=== PATIENT | female | born 1945 | race Caucasian/White ===

== ENCOUNTER → 2017-04-28 | Outpatient (CLI) | payer MEDICARE, OTHER ==
[~2017-04-28] MED LIST: DEXA4 PO; ESCI5 PO; Emla Cream30 GM TP; IBUP400 PO; OMEP20ER PO; ONDA8 PO; OXYC5 PO; SIMV10 PO; ZOLP5 PO
== END ==
LOC: LAB SHORT 07:41 → LAB 07:41
DX: D48.5 Neoplasm of uncertain behavior of skin (principal)
CPT/HCPCS: 88305

== ENCOUNTER → 2018-11-30 | Outpatient (CLI) | payer MEDICARE, OTHER ==
[2018-11-30 11:07] LABS: Source, Urine Clean Catch
[2018-11-30 12:20] LABS: Bilirubin, Urine Neg (Neg); Blood, Urine Neg (Neg); Glucose Qualitative, Urine Neg (Neg); Ketones, Urine Neg (Neg); Leukocyte Esterase, Urine Neg (Neg); Nitrite, Urine Neg (Neg); Protein, Urine 3+ (Neg); Specific Gravity, Urine 1.015 (1.003-1.022); Urobilinogen, Urine NORM (Normal)
[2018-11-30 13:53] LABS: Appearance, Urine Clear (Clear); Color, Urine Yellow (P-Yellow)
[2018-11-30 13:54] LABS: Bacteria Mod /hpf; Mucus Light ({null, 0-Heavy}); Red Blood Cells, Urine Not Seen /hpf (0-2); Squamous Epithelial Cells Rare /hpf (Few); White Blood Cells, Urine 0-2 /hpf (0-5)
== END | disposition home or self-care (01) ==
LOC: LAB 10:45 → LAB SHORT 10:45 → LAB FUT 12-01 09:30
PROVIDERS: Registered Nurse Oncology
DX: R30.0 Dysuria (principal)
CPT/HCPCS: 81001

== ENCOUNTER 2019-02-10 14:58 | Day surgery (SDC) | payer MEDICARE, OTHER | END 2019-02-10 23:50 | disposition home or self-care (01) | LOC: US 14:58 | DX: R18.8 Other ascites (principal); C56.9 Malignant neoplasm of unspecified ovary; C54.8 Malignant neoplasm of overlapping sites of corpus uteri; C77.2 Secondary and unspecified malignant neoplasm of intra-abdominal lymph nodes; C77.1 Secondary and unspecified malignant neoplasm of intrathoracic lymph nodes; C78.00 Secondary malignant neoplasm of unspecified lung | CPT/HCPCS: 76705 ==

== ENCOUNTER 2019-05-12 09:16 | Day surgery (SDC) | payer MEDICARE, OTHER ==
[2019-05-12] MEDS ORDERED: ATOR20 PO (10:01)
[2019-05-12] MEDS ORDERED: OLME20 PO (11:43)
[2019-05-12] MEDS ORDERED: AMLO5 PO (11:44)
[2019-05-12] MEDS ORDERED: FISH OIL 1,0001 EACH PO (11:44)
[2019-05-12] MEDS ORDERED: Vitamin D2000 UNIT PO (11:44)
[2019-05-12] MEDS ORDERED: HYDHCL25 PO (11:45)
[2019-05-12] MEDS ORDERED: ACET500 PO (11:46)
[2019-05-12] MEDS ORDERED: AMLO10 PO (11:47)
[2019-05-12] MEDS ORDERED: VALS80 PO (11:47)
[2019-05-12] MEDS ORDERED: VALA500 PO (11:47)
== END 2019-05-12 11:48 | disposition home or self-care (01) ==
LOC: ATC 09:16
DX: E83.41 Hypermagnesemia (principal); I12.9 Hypertensive chronic kidney disease with stage 1 through stage 4 chronic kidney disease, or unspecified chronic kidney disease; D63.1 Anemia in chronic kidney disease; N18.3 Chronic kidney disease, stage 3 (moderate); E78.00 Pure hypercholesterolemia, unspecified; N20.0 Calculus of kidney; C56.9 Malignant neoplasm of unspecified ovary; C54.8 Malignant neoplasm of overlapping sites of corpus uteri; C77.2 Secondary and unspecified malignant neoplasm of intra-abdominal lymph nodes; C77.1 Secondary and unspecified malignant neoplasm of intrathoracic lymph nodes; C78.00 Secondary malignant neoplasm of unspecified lung; Z88.8 Allergy status to other drugs, medicaments and biological substances; Z79.899 Other long term (current) drug therapy; D73.9 Disease of spleen, unspecified; E87.6 Hypokalemia; R73.09 Other abnormal glucose
CPT/HCPCS: 96365; 96366; J3475

== ENCOUNTER → 2020-04-04 | Outpatient (CLI) | payer MEDICARE, OTHER ==
[~2020-04-04] MED LIST changes: +ACET500 PO; +AMLO10 PO; +AMLO5 PO; +ATOR20 PO; +FISH OIL 1,0001 EACH PO; +HYDHCL25 PO; +OLME20 PO; +VALA500 PO; +VALS80 PO; +Vitamin D2000 UNIT PO
[2020-04-04 12:41] LABS: BASOPHILS ABSOLUTE AUTO 0.03 K/mm3 (0.00-0.23); BASOPHILS PERCENT AUTO 1 % (0-2); EOSINOPHILS ABSOLUTE AUTO 0.18 K/mm3 (0.00-0.68); EOSINOPHILS PERCENT AUTO 6 % (0-6); Hemoglobin 11.1 g/dL (11.5-16.0); IMMATURE GRAN ABSOLUTE AUTO 0.01 K/mm3 (0.00-0.10); IMMATURE GRAN PERCENT AUTO 0 % (0-1); LYMPHOCYTES ABSOLUTE AUTO 1.36 K/mm3 (0.84-5.20); LYMPHOCYTES PERCENT AUTO 43 % (21-46); MONOCYTES ABSOLUTE AUTO 0.25 K/mm3 (0.16-1.47); MONOCYTES PERCENT AUTO 8 % (4-13); Mean Corpuscular HGB 32.3 pg (26.0-34.0); Mean Corpuscular HGB Conc 32.6 g/dL (31.5-36.5); Mean Corpuscular Volume 99 fL (80-100); Mean Platelet Volume 10.6 fL (9.1-12.4); NEUTROPHILS ABSOLUTE AUTO 1.37 K/mm3 (1.96-9.15); NEUTROPHILS PERCENT AUTO 43 % (41-73); Platelet Count 206 K/mm3 (150-400); RDW Coefficient Variation 14.9 % (11.7-14.2); RDW Standard Deviation 53.1 fL (35.1-46.3); Red Blood Cell Count 3.44 M/mm3 (3.80-5.20)
[2020-04-04 12:56] LABS: Albumin, Blood 3.3 g/dL (3.4-5.0); Albumin/Globulin Ratio 0.9 (0.8-1.8); Bilirubin, Total 0.4 mg/dL (0.1-1.0); Bun/Creatinine Ratio 33.5 (12.0-20.0); Creatinine, Blood 1.73 mg/dL (0.40-1.00); Globulin, Blood 3.6 g/dL (2.2-4.0); Potassium, Blood 3.3 mmol/L (3.5-5.5); Total Protein, Blood 6.9 g/dL (6.4-8.2)
== END ==
LOC: LAB 12:16 → LAB SHORT 12:16
PROVIDERS: Registered Nurse Oncology
DX: C56.9 Malignant neoplasm of unspecified ovary (principal)
CPT/HCPCS: 80053; 85025; 86304

== ENCOUNTER 2020-08-15 14:19 | Day surgery (SDC) | payer MEDICARE, OTHER | END 2020-08-15 22:52 | disposition home or self-care (01) | LOC: RAD 14:19 | DX: C56.9 Malignant neoplasm of unspecified ovary (principal) | CPT/HCPCS: 36598 ==

== ENCOUNTER → 2021-03-06 | Outpatient (CLI) | payer MEDICARE, OTHER ==
[2021-03-06 12:53] LABS: Albumin, Blood 2.7 g/dL (3.4-5.0); Albumin/Globulin Ratio 0.8 (0.8-1.8); Bilirubin, Total 0.5 mg/dL (0.1-1.0); Bun/Creatinine Ratio 22.7 (12.0-20.0); Calcium, Blood 8.4 mg/dL (8.5-10.1); Creatinine, Blood 1.19 mg/dL (0.40-1.00); Globulin, Blood 3.4 g/dL (2.2-4.0); Phosphorus, Blood 3.2 mg/dL (2.5-4.9); Potassium, Blood 3.6 mmol/L (3.5-5.5); Total Protein, Blood 6.1 g/dL (6.4-8.2)
== END | disposition home or self-care (01) ==
LOC: LAB SHORT 11:27 → LAB 11:27
PROVIDERS: Internal Medicine Hematology & Oncology
DX: C56.9 Malignant neoplasm of unspecified ovary (principal)
CPT/HCPCS: 80053; 84100; 86304

== ENCOUNTER → 2021-04-01 | Outpatient (CLI) | payer MEDICARE, OTHER ==
[2021-04-01 11:22] LABS: BASOPHILS ABSOLUTE AUTO 0.02 K/mm3 (0.00-0.23); BASOPHILS PERCENT AUTO 0 % (0-2); EOSINOPHILS ABSOLUTE AUTO 0.01 K/mm3 (0.00-0.68); EOSINOPHILS PERCENT AUTO 0 % (0-6); Hematocrit 38.5 % (33.0-51.0); Hemoglobin 12.7 g/dL (11.5-16.0); IMMATURE GRAN ABSOLUTE AUTO 0.11 K/mm3 (0.00-0.10); IMMATURE GRAN PERCENT AUTO 1 % (0-1); LYMPHOCYTES ABSOLUTE AUTO 1.68 K/mm3 (0.84-5.20); LYMPHOCYTES PERCENT AUTO 14 % (21-46); MONOCYTES ABSOLUTE AUTO 0.55 K/mm3 (0.16-1.47); MONOCYTES PERCENT AUTO 4 % (4-13); Mean Corpuscular HGB 33.2 pg (26.0-34.0); Mean Corpuscular Volume 101 fL (80-100); Mean Platelet Volume 9.4 fL (9.1-12.4); NEUTROPHILS ABSOLUTE AUTO 10.01 K/mm3 (1.96-9.15); NEUTROPHILS PERCENT AUTO 81 % (41-73); Platelet Count 144 K/mm3 (150-400); RDW Coefficient Variation 16.8 % (11.7-14.2); RDW Standard Deviation 62.1 fL (35.1-46.3); Red Blood Cell Count 3.83 M/mm3 (3.80-5.20); White Blood Cell Count 12.38 K/mm3 (4.00-11.30)
== END | disposition home or self-care (01) ==
LOC: LAB SHORT 11:15
PROVIDERS: Internal Medicine Hematology & Oncology
DX: C56.9 Malignant neoplasm of unspecified ovary (principal)
CPT/HCPCS: 85025; 86304

== ENCOUNTER → 2021-04-22 | Outpatient (CLI) | payer MEDICARE, OTHER ==
[2021-04-22 16:16] LABS: Magnesium, Blood 1.3 mg/dL (1.6-2.4)
[2021-04-22 16:17] LABS: Albumin/Globulin Ratio 1.1 (0.8-1.8); Bilirubin, Total 0.4 mg/dL (0.1-1.0); Bun/Creatinine Ratio 17.8 (12.0-20.0); Calcium, Blood 8.2 mg/dL (8.5-10.1); Creatinine, Blood 1.52 mg/dL (0.40-1.00); Globulin, Blood 2.8 g/dL (2.2-4.0); Phosphorus, Blood 3.9 mg/dL (2.5-4.9); Potassium, Blood 3.7 mmol/L (3.5-5.5); Total Protein, Blood 5.8 g/dL (6.4-8.2)
== END ==
LOC: LAB SHORT 14:57
PROVIDERS: Internal Medicine Hematology & Oncology
DX: C56.9 Malignant neoplasm of unspecified ovary (principal)
CPT/HCPCS: 80053; 83735; 84100; 86304

== ENCOUNTER → 2021-05-12 | Outpatient (CLI) | payer MEDICARE, OTHER ==
[2021-05-12 13:59] LABS: Albumin, Blood 2.6 g/dL (3.4-5.0); Albumin/Globulin Ratio 0.8 (0.8-1.8); Bilirubin, Total 0.5 mg/dL (0.1-1.0); Calcium, Blood 8.9 mg/dL (8.5-10.1); Creatinine, Blood 1.46 mg/dL (0.40-1.00); Globulin, Blood 3.1 g/dL (2.2-4.0); Phosphorus, Blood 3.8 mg/dL (2.5-4.9); Potassium, Blood 3.4 mmol/L (3.5-5.5); Total Protein, Blood 5.7 g/dL (6.4-8.2)
== END | disposition home or self-care (01) ==
LOC: LAB SHORT 12:16 → LAB 12:16
PROVIDERS: Internal Medicine Hematology & Oncology
DX: C56.9 Malignant neoplasm of unspecified ovary (principal)
CPT/HCPCS: 80053; 83735; 84100

== ENCOUNTER 2021-06-04 15:03 | Inpatient (IN) | payer MEDICARE, OTHER ==
[~2021-06-04] VITALS: Ht 121.9 cm; Wt 64.0 kg
[~2021-06-04 15:03] MED LIST changes: -BENZ100A PO; -BUME2 PO; -CODEINE PO; -GUAIFENESIN PO; -LOSARTAN POTASS25 M2 PO; -MONT10T PO; -POTA10T PO; -Phenergan PO; -SYNTHROID50 MC1 PO; -Ventolin/Prove6.7 GM INH
[2021-06-04 15:51] LABS: BASOPHILS ABSOLUTE AUTO 0.07 K/mm3 (0.00-0.23); BASOPHILS PERCENT AUTO 0 % (0-2); EOSINOPHILS PERCENT AUTO 0 % (0-6); Hematocrit 36.4 % (33.0-51.0); IMMATURE GRAN ABSOLUTE AUTO 0.07 K/mm3 (0.00-0.10); IMMATURE GRAN PERCENT AUTO 0 % (0-1); LYMPHOCYTES ABSOLUTE AUTO 0.86 K/mm3 (0.84-5.20); LYMPHOCYTES PERCENT AUTO 6 % (21-46); MONOCYTES ABSOLUTE AUTO 1.08 K/mm3 (0.16-1.47); MONOCYTES PERCENT AUTO 7 % (4-13); Mean Corpuscular HGB 33.7 pg (26.0-34.0); Mean Corpuscular Volume 102 fL (80-100); Mean Platelet Volume 9.9 fL (9.1-12.4); NEUTROPHILS PERCENT AUTO 87 % (41-73); Platelet Count 241 K/mm3 (150-400); RDW Coefficient Variation 15.3 % (11.7-14.2); RDW Standard Deviation 57.4 fL (35.1-46.3); Red Blood Cell Count 3.56 M/mm3 (3.80-5.20); White Blood Cell Count 15.58 K/mm3 (4.00-11.30)
[2021-06-04 16:02] LABS: Magnesium, Blood 1.5 mg/dL (1.6-2.4)
[2021-06-04 16:03] LABS: Bun/Creatinine Ratio 14.8 (12.0-20.0); Creatinine, Blood 1.42 mg/dL (0.40-1.00); Potassium, Blood 3.8 mmol/L (3.5-5.5)
[2021-06-04 16:52] LABS: Influenza A, PCR NEGATIVE (NEGATIVE); Influenza B, PCR NEGATIVE (NEGATIVE); Resp Syncytial Virus, PCR NEGATIVE (NEGATIVE); SARS-Cov-2 (COVID-19) PCR, MMC NEGATIVE (NEGATIVE)
--- NOTE | 2021-06-04 17:11 | NUR ---
ED Palliative Care Consult Received call from Isamar at [facility]. Dr Reagan has referred Pt to [facility]. Pt has metastatic cancer with treatment no longer beneficial. Spoke with Dr Garcia, discussed case, and relayed information learned. Dr Mathias reports Pt may benefit from hospital admission for treatment until family has chance to process information. Pt resting on gurney upon arrival. Pt's daughter Kylah at bedside. Pt is A&OX2/3. Pt does appear confused at times. Kylah reports Pt struggles recognizing her. Pt denies pain at this time. Pt appears mildly dyspneic. Spoke with Kylah outside of Pt's room. Engaged in therapeutic conversation regaerding hospice as an option. Educated on hospice philosophy with V/U made by Kylah. Kylah intermittently tearful and emotional support offered. Kylah is in agreement with Pt being admitted if recomended. Plan for Kylah and family to discuss hospice further. Kylah reports thinking hospice is something Pt would want. She reports Pt has been researching lately and feels she is probably ready. No other concerns reported at this time. Palliative Care will F/U with Pt and family if admitted to the floor.
[2021-06-04 17:13] LABS: Source, Urine Straight Cath
[2021-06-04 17:15] LABS: Bilirubin, Urine Neg (Neg); Blood, Urine 1+ (Neg); Glucose Qualitative, Urine Neg (Neg); Ketones, Urine 2+ (Neg); Leukocyte Esterase, Urine Neg (Neg); Nitrite, Urine Neg (Neg); Protein, Urine 4+ (Neg); Specific Gravity, Urine 1.025 (1.003-1.022); Urobilinogen, Urine NORM (Normal)
[2021-06-04 17:30] LABS: Appearance, Urine Hazy (Clear); Color, Urine Pale Yellow (P-Yellow)
[2021-06-04 17:31] LABS: Bacteria Rare /hpf; Squamous Epithelial Cells Rare /hpf (Few); White Blood Cells, Urine 0-2 /hpf (0-5)
[2021-06-04 17:32] LABS: Hyaline Casts 0-2 /lpf (0-2); Mucus Light (0-Heavy); Trichomonas Rare /hpf
[2021-06-04] MEDS ORDERED: LOSARTAN POTASS25 M2 PO (19:00)
[2021-06-04] MEDS ORDERED: SYNTHROID50 MC1 PO (19:02)
[2021-06-04] MEDS ORDERED: MONT10T PO (19:03)
[2021-06-04] MEDS ORDERED: Ventolin/Prove6.7 GM INH (19:03)
[2021-06-04] MEDS ORDERED: BENZ100A PO (20:34)
[2021-06-04] MEDS ORDERED: Phenergan PO (20:36)
[2021-06-04] MEDS ORDERED: BUME2 PO (20:38)
[2021-06-04] MEDS ORDERED: POTA10T PO (20:38)
[2021-06-04] MEDS ORDERED: GUAIFENESIN PO (23:06)
[2021-06-04] MEDS ORDERED: CODEINE PO (23:06)
--- NOTE | 2021-06-05 01:56 | NUR ---
AT 2106 PATIENT ADMITTED FROM ER TO PCU ROOM 5 ACCOMPANIED BY RN. PATIENT WAS ASSESSED AND ALERT ORIENTED TIME 3. ABLE TO MAKE NEEDS KNOWN. PATIENT ABLE TO AMBULATE WITH STANDBY ASSIST TO BATHROOM. PATIENT NOTED WITH CONTINUOUS COUGH. LUNGS SOUNDS NOTED WITH COARSE/DIMINISHED.PATIENT CURRENTLY HAS 2 LITERS OF OXYGEN IN PLACED.LAST BM 06/03/21. CONTINUE TO MONITOR PATIENT CONDITION.
--- NOTE | 2021-06-05 02:23 | NUR ---
2320 IV FLUIDS WAS ORDERED TO BE ADMINISTERED TO PATIENT.PATIENT STATED WHY ARE TO GIVEN ME THAT AND WHO IS GOING TO PAY FOR THE MEDS. PATIENT WAS REASSESSED AND NOTED CONFUSED ASKING WHERE IM I. CALLED WAS PLACED TO IN HOUSE DOCTOR FOR NEW ORDERS VENOUS BLOOD GAS AND MELATONIN 5MG, LABETALOL GIVEN PATIENT B/P ELEVATED. CALLED PLACED OUT TO SON MICHELET, MICHELET WAS INFORMED OF HIS MOTHERS CONDITION AND NEW ONSET OF CONFUSION AND REFUSING TO TAKE MEDICATION. SON STATED HIS MOTHER CONFUSION STARTED YESTERDAY. MICHELET WAS REQUESTED TO COME AND STAY WITH MOTHER PER CHARGE NURSE. CONTINUE TO MONIOR PATIENT CONDITION.
[2021-06-05 04:39] LABS: BASOPHILS ABSOLUTE AUTO 0.05 K/mm3 (0.00-0.23); BASOPHILS PERCENT AUTO 1 % (0-2); EOSINOPHILS PERCENT AUTO 0 % (0-6); Hematocrit 32.7 % (33.0-51.0); Hemoglobin 10.2 g/dL (11.5-16.0); IMMATURE GRAN ABSOLUTE AUTO 0.06 K/mm3 (0.00-0.10); IMMATURE GRAN PERCENT AUTO 1 % (0-1); LYMPHOCYTES ABSOLUTE AUTO 0.28 K/mm3 (0.84-5.20); LYMPHOCYTES PERCENT AUTO 3 % (21-46); MONOCYTES PERCENT AUTO 4 % (4-13); Mean Corpuscular HGB 32.7 pg (26.0-34.0); Mean Corpuscular HGB Conc 31.2 g/dL (31.5-36.5); Mean Corpuscular Volume 105 fL (80-100); Mean Platelet Volume 9.7 fL (9.1-12.4); NEUTROPHILS ABSOLUTE AUTO 8.63 K/mm3 (1.96-9.15); NEUTROPHILS PERCENT AUTO 92 % (41-73); Platelet Count 185 K/mm3 (150-400); RDW Coefficient Variation 15.3 % (11.7-14.2); RDW Standard Deviation 58.3 fL (35.1-46.3); Red Blood Cell Count 3.12 M/mm3 (3.80-5.20); White Blood Cell Count 9.42 K/mm3 (4.00-11.30)
[2021-06-05 05:13] LABS: Bun/Creatinine Ratio 16.2 (12.0-20.0); Calcium, Blood 8.3 mg/dL (8.5-10.1); Creatinine, Blood 1.36 mg/dL (0.40-1.00); Potassium, Blood 3.6 mmol/L (3.5-5.5)
[2021-06-05 05:32] LABS: Base Excess Venous -6.1 mmol/L; Bicarbonate Venous 18.9 mmol/L (24.0-30.0); PCO2 Venous 40.6 mmHg (38-42); PO2 Venous 27.8 mmHg (38-42); pH Blood Venous 7.31 (7.34-7.37)
--- NOTE | 2021-06-05 09:47 | NUR ---
OT in working with Pt. Spoke with son Hiram and daughter Kylah outside of Pt's room. Answered question and offered supportive listening. Hiram reports undecided on hospice agency to choose from. Continued supportive listening. Spoke with Primary RN Tressa and discussed case. Palliative Care will remain available.
--- NOTE | 2021-06-05 17:08 | NUR ---
SHIFT SUMMARY PT A&O X3 W/ NOTED FORGETFULNESS, ABLE TO FOLLOW INSTRUCTIONS & AMBULATE TO BATHROOM W/ MINIMAL 1 PERSON ASSIST W/ FWW. PT VSS. SPO2 > 92% ON 2L NC. PT W/ OCCASSIONAL DRY, HARSH COUGH. PRN PO COUGH MEDICATION PROVIDED PER EMAR X1 THIS SHIFT. MONITOR SHOWING SR-ST, HR 80's-105. PT BP ELEVATED, PRN IV LABETALOL GIVEN PER EMAR X1 THIS SHIFT W/ IMPROVEMENT. AT APPROX 1600, PT ONLY ORIENTED TO SELF & FAMILY IN RM. PT DIFFICULTY FOLLOWING SIMPLE INSTRUCTIONS. PT W/ INCONTINENT BM W/ PT UNAWARE. PT W/ DIFFICULTY FOLLOWING SIMPLE INSTRUCTIONS. PT ABLE TO FOLLOW SINGLE ISOLATED INSTRUCTION FOR 1-2 SECONDS, BEFORE THEN BECOMING DISTRACTED W/ ATTEMPTS TO DO COUNTERPRODUCTIVE ACTIONS, REQUIRING CONTINUOUS DIRECTION/REDIRECTION FOR BASIC TASKS/CARE. PT SON REPORTING PT INCREASINGLY CONFUSED AT NIGHT FOR THE PAST COUPLE OF MONTHS. PT SON REPORTING "IT'S BEEN HARD BECAUSE SHE'S FINE DURING THE DAY, AND THAT'S WHEN THE DOCTORS SEE HER, BUT AT NIGHT SHE'S LIKE THIS." PT SON STATING PT ATTEMPTING TO DRINK FROM FLYER REPAIRER CORD. PT REDIRECTED TO WATER CUP. PT SITTING UP IN CHAIR W/ TAB ALARM ON. BED ALARM USE WHEN IN BED. PT SON REPORTING PT DAUGHTER AVAILABLE TO SPEND NIGHT W/ PT TONIGHT TO ASSIST W/ PT CONFUSION/CARE.
[2021-06-05 19:27] LABS: Vancomycin, Random 10.1 ug/mL
--- NOTE | 2021-06-05 23:51 | NUR ---
PT IS ALERT, ORIENTED TO SELF ONLY. APPEARS ANXIOUS, STARTLES WITH ASSESSMENTS AND INTERVENTIONS EVEN WHEN EXPLANATION GIVEN. PT ABLE TO IDENTIFY FAMILY MEMBERS VISTING. PT NEEDS CONSTANT REMINDING NOT TO REMOVE O2. PT INCONTINENET, DOMINICK CARE PERFORMED. PT TAKES PILLS WHOLE IN APPLESAUCE WITH MODERATE DIFFICULTY. BP ELEVATED, PRN LABATALOL GIVEN, SBP < 160, WILL CONTINUE TO MONITOR. SISTER ATTENTIVE AT BEDSIDE. SAFETY MEASURES IN PLACE.
[2021-06-06 06:23] LABS: Hematocrit 30.5 % (33.0-51.0); Hemoglobin 9.9 g/dL (11.5-16.0); Mean Corpuscular HGB 33.2 pg (26.0-34.0); Mean Corpuscular HGB Conc 32.5 g/dL (31.5-36.5); Mean Corpuscular Volume 102 fL (80-100); Mean Platelet Volume 10.1 fL (9.1-12.4); Platelet Count 142 K/mm3 (150-400); RDW Coefficient Variation 15.2 % (11.7-14.2); Red Blood Cell Count 2.98 M/mm3 (3.80-5.20); White Blood Cell Count 26.44 K/mm3 (4.00-11.30)
[2021-06-06 06:44] LABS: Albumin, Blood 2.2 g/dL (3.4-5.0); Anion Gap 11 mmol/L (6-16); Blood Urea Nitrogen 23 mg/dL (8-24); Bun/Creatinine Ratio 16.1 (12.0-20.0); CO2, Blood 18 mmol/L (21-32); Calcium, Blood 8.5 mg/dL (8.5-10.1); Chloride, Blood 112 mmol/L (98-108); Creatinine, Blood 1.43 mg/dL (0.40-1.00); Glomerular Filtration Rate 36 (60-); Glucose, Blood 101 mg/dL (70-99); Phosphorus, Blood 3.6 mg/dL (2.5-4.9); Potassium, Blood 3.3 mmol/L (3.5-5.5); Sodium, Blood 141 mmol/L (136-145)
[2021-06-06 06:51] LABS: BAND PERCENT MAN 13 % (0-8); BASOPHILS ABSOLUTE MAN 0.26 K/mm3 (0.00-0.23); BASOPHILS PERCENT MAN 1 % (0-2); EOSINOPHILS PERCENT MAN 0 % (0-6); LYMPHOCYTES ABSOLUTE MAN 0.52 K/mm3 (0.84-5.20); LYMPHOCYTES PERCENT MAN 2 % (21-46); MONOCYTES PERCENT MAN 0 % (4-13); NEUTROPHILS ABSOLUTE MAN 25.64 K/mm3 (1.96-9.15); SEG NEUTROPHILS PERCENT MAN 84 % (41-73); TOTAL CELLS COUNTED 100
--- NOTE | 2021-06-06 09:12 | NUR ---
Pt resting in bed. Family at bedside and Primary RN recording vitals. Pt denies pain and dyspnea at this time. Pt is pleasantly confused. Non productive slightly wet cough noted. Pt and family report no concerns at this time. Palliative Care will remain available.
--- NOTE | 2021-06-06 19:26 | NUR ---
SHIFT SUMMARY / TRANSITION TO COMFORT CARE PT ALERT, ORIENTED TO SELF & FAMILY ONLY. PT W/ DIFFICULTY FOLLOWING SIMPLE COMMANDS & UNABLE TO FOCUS ATTENTION. PT RESTLESS & FIDGETY MAJORITY OF DAY. PT BECOMING MORE & MORE DIFFICULT TO DIRECT. FAMILY AT BEDSIDE T/O SHIFT. MULTIPLE DISCUSSIONS W/ PT SON & DAUGHTER TODAY W/ PT SON & DAUGHTER REQUESTING COMFORT CARE AFTER DISCUSSIONS W/ PALLIATIVE CARE WELL. MD AGUIRRE W/ ORDER FOR COMFORT CARE. PT W/ INCREASING AGITATION & RESTLESSNESS, SITTING UP & DOWN IN BED, GRABBING & PULLING AT ANYTHING IN REACH. ATTEMPTS W/ PRN PO ROXANOL & PRN IV ATIVAN GIVEN PER EMAR W/ NO IMPROVEMENTS. PRN IV HALDOL GIVEN W/ NO IMPROVEMENT. PRN IV DILAUDID THEN GIVEN W/ PT NO LONGER AGITATED & RESTLESS, BUT BUE & BLE TENSE. PT JAW CLENCHED. PRN IV MORPHINE GIVEN W/ SIGNIFICANTLY LESS BODY TENSION NOTED. REPORT GIVEN TO ELIGIBILITY EXAMINER RN. FAMILY REMAINS AT PT BEDSIDE ASSISTING W/ PT COMFORT/CARE.
--- NOTE | 2021-06-06 23:18 | NUR ---
PT ON COMFORT CARE ORDERS. FAMILY AT BEDSIDE, DAUGHTER SLEEPING IN ARMCHAIR. PT SLEEPING, OCCASIONALLY MOANING AND MOVING IN BED. MORPHINE IV GIVEN FOR COMFORT. PT NOW RESTING COMFORTABLY WITH EYES CLOSED. DAUGHTER STATES SATISFACTION WITH PT COMFORT.
--- NOTE | 2021-06-07 06:11 | NUR ---
IV MORPHINE GIVEN TWICE MORNING DURING SHIFT. THIS A.M. AFTER BRIEF BEING CHANGED PT BECAME AGGITATED, MORPHINE PROVIDING ONLY MODERATE RELIEF. ATIVAN GIVEN AT FAMILY REQUEST. ATROPINE DROPS GIVEN TO HELP WITH SECRETIONS. DISCUSSED USE OF SCOPOLAMINE PATCH IF NEEDED. WILL MONITOR. SAFETY MEASURES IN PLACE.
--- NOTE | 2021-06-07 08:48 | NUR ---
CARE ASSUMPTION PT COMFORT CARE STATUS. PT DAUGHTER AT BEDSIDE REPORTING PT BRIEFLY WAKES W/ AGITATION BEFORE FALLING BACK TO SLEEP. PT CURRENTLY SLEEPING W/ SLIGHT SNORING NOTED, NO NEEDS AT THIS TIME. WILL CONTINUE TO MONITOR & PROVIDE CARE.
--- NOTE | 2021-06-07 10:45 | NUR ---
Pal Care comfort care visit made to bedside. Lex at bedside and had stayed over night. She states another family member will be coming in today so she can go home for a bit and rest. Pt is lying supine, snorous, fairly even respirations of 20/min. Pt breathing with mouth open, shallow breaths. She has pulled off O2 if it was applied per lex. We discussed s/s, current management. Pt appears very comfortable and peaceful with no scowling, frowning, grimacing or restless noted. Discussed medications for s/s if needed with lex. Reviewed s/s she may start noting. Pt has extreme pallor. Skin warm and dry. She did not wake to voice or gentle touch. Lex states she has not been wakeful since last night and when she was wakeful yesterday was disoriented. Booklet "The 11th hour given to lex at her request, while discussing EOL progression and s/s. Plan to visit daily. We briefly discussed previous plan of d/c early in week to home with hospice and that we would assess daily to re eval if that plan was most appropriate. Inst lex if pt became imminent and active in the dying process we may not move. Lex verbalized understanding. I believe pt may become imminent within the next 24-48 hours, especially because she is not moving on her own, taking in zero PO fluids/food, appears unresponsive and is extremely comfortable appearing now. Plan daily visits for s/s management and support.
--- NOTE | 2021-06-07 17:44 | NUR ---
SHIFT SUMMARY PT COMFORT CARE STATUS W/ ROTATING FAMILY MEMBERS AT BEDSIDE MAJORITY OF DAY. PT SLEEPING MAJORITY OF DAY, DOES NOT WAKE TO VERBAL STIMULATION OR TOUCH, BUT OPENS EYES FOR BRIEF MOMENTS SUCH FOR ATTENDS CHANGES/REPOSITIONING. PT ALSO ATTEMPTING TO SUCK ON WET MOUTH SWABS WHEN SWABBING PT MOUTH. PT FAMILY MEMBERS USING CALL LIGHT, REPORTING PT WAKING "AGITATED, PUTTING HER ARMS UP ABOVE HER HEAD & JUST LOOKS AGITATED." PT SLEEPING UPON NURSE ENTRY. FAMILY REPORTING "WE JUST DON'T WANT HER TO BE IN PAIN." PRN IV ATIVAN GIVEN PER EMAR X2 THIS SHIFT & PRN IV MORPHINE GIVEN X1 THIS SHIFT W/ PT NOW SLEEPING W/ FAMILY AT BEDSIDE. WILL CONTINUE TO MONITOR & PROVIDE CARE UNTIL REPORT OFF TO MANAGER WEB APPLICATION RN.
--- NOTE | 2021-06-07 20:00 | NUR ---
PT IS RESTING IN BED WITH EYES CLOSED, FAMILY ATTENTIVE AT BEDSIDE. BRIEF CHANGED DUE TO INCONTINENCE. PT BECAME AGGITATED WITH MOVEMENT, FAMILY REQUESTING MEDICATION TO MAKE COMFORTABLE. MEDICATED WITH MORHPINE, SEE eMAR. POSITIONED IN BED FOR COMFORT. SAFETY MEASURES IN PLACE.
--- NOTE | 2021-06-07 21:19 | NUR ---
PT RESTLESS, FEELS WARM TO TOUCH PER FAMILY. FAMILY REMOVED SEVERAL BLANKETS, NOW RESTING COMFORTABLY. WILL MONITOR.
--- NOTE | 2021-06-07 21:56 | NUR ---
PT CONTINUES TO BE AGGITATED, GRIMACING, APPEARS UNCOMFORTABLE. MEDICATED FOR PAIN, SEE eMAR.
--- NOTE | 2021-06-08 07:52 | NUR ---
ASSUMED CARE OF PT THIS AM AFTER RECEIVING REPORT FROM NOC SHIFT RN. PT RESTING QUIETLY IN BED WITH EYES CLOSED, RESPIRATIONS EVEN AND UNLABORED. PT ACCOMPANIED BY TWO FAMILY MEMBERS IN ROOM WHO APPEAR TO BE SLEEPING. LIGHTS ARE LOW. CALL LIGHT WITHIN REACH.
--- NOTE | 2021-06-08 14:28 | NUR ---
[facility] CARE COMFORT CARE VISIT - Pt's ayana and sister at the bedside. RN also present for part of my visit as she was in to administer pain medication. Pt was grimacing and frowning despite being unresponsive to voice or touch. Pt cont with sonorous breathing, more shallow today with some agonal breathing patterns noted at times. Discussed with family daily assessment and that we would reassess tomorrow before any transportation scheduled for d/c home with hospice. Explained that if pt able to go home it would be with gurney transport and full assist for any bed to bed transfer. S/S of progression of dying discussed with sister and ayana and that she may have a rally period, or she may cont to progress and not wake again. Sister and ayana appropriately tearful and grieving. Encouraged family to be present, take breaks when needed, talk, laugh, reminisce with pt as if she could actively participate. Family expressed appreciation for the care she has received while here.
--- NOTE | 2021-06-09 05:33 | NUR ---
SHIFT SUMMARY NO ACUTE CHANGES THIS SHIFT. PT LETHARGIC, FLEXES TOES AND MOANS WHEN IN PAIN. BREATHING ROOM AIR, AGONAL BREATHING. SECRETIONS AT START OF SHIFT, APPLIED PATCH. NO VITALS TAKEN, PT COMFORT CARE STATUS. PT REPOSITIONED LEFT SIDE AND FLOATED, DOES NOT TOLERATE RIGHT SIDE. ONE WET BRIEF THIS SHIFT. C/D ATTENDS IN PLACE. PAIN MEDICATION AND ANXIETY MEDICATION GIVEN PER EMAR. DAUGHTER AT BEDSIDE T/O SHIFT. CALL LIGHT IN REACH.
--- NOTE | 2021-06-09 08:48 | NUR ---
Pal Care comfort care visit - Lex sound asleep in recliner by bedside. Pt is unresponsive to voice or touch. She has agonal, shallow, uneven respirations with periods of apnea lasting 10-15 seconds. She appears comfortable and without restlessness at this time. Case conferenced with foam charger and bedside RN. Pt appears imminent within 24 hours. I would not recommend transfer to home at this time. Met with family yesterday and they were very anxious about possibility that pt could in transport. Will remain available for s/s management and support. CM updated on my visit by NICOLE.
--- NOTE | 2021-06-09 09:15 | NUR ---
Additional time spent at bedside with pt's lex once she awoke. It took me waking her gently to update on assessment as we had planned yesterday. Lex asked some questions and they were discussed and answered. As we were talking pt had an episode of struggling with secretions and attempting to cough them up unsuccessfully. She had eyes open for a bit and had some struggle but lex was more distressed than pt appeared. Pt was more wakeful and restless appearing for a time with foot pumping and twitching. Jim UE extremely edematous and pitting with lymph edema. Pt recognized lex and was able to whisper, barely audibly, "I love you too" to lex. I repositioned pt to left side, reported to RN, who momentarily came in with medication. Lex hopeful that pt can remain in the hospital as she appears to be more actively dying. Discussed with CM afterwards, and she will contact hospice agency to update.
--- NOTE | 2021-06-09 14:32 | NUR ---
Spiritual care visit conducted. Patient is lying in bed and minimally responsive. Family fill the rm and are tearful. They tell stories of pt's wonderful kindness, generosity, and positivity. They explain how she has already defied the odds. They share about her mix of New Age practices and Zoroastrianism type of beliefs and yet explain that of late pt has voiced quite a concern about "going to hell." They ask me to say a prayer for her to hopefully lift some of this burden and fear from her. I talk into pt's ear and share about hope, light and the love of God. I provide a prayer centered around forgiveness of sins, God's peace and comfort for the family (a sort of last rites prayer). Pt's family tearful during the prayer but voice much gratitude. I will continue to remian avilable to patient and family.
--- NOTE | 2021-06-09 18:10 | NUR ---
SHIFT SUMMARY: COMFORT CARE STATUS CONTINUES. PT REMAINS MINIMALLY RESPONSIVE TO STIMULI, WILL OPEN EYES OR HAVE SHORT COUGHING FITS WHEN TURNED/CHANGED. OTHERWISE, OCCASIONAL GRIMACING, MOVEMENT OF FEET/HANDS, OR MOANING USED SIGNS PT MIGHT NEED MEDICATION OR REPOSITIONING. SEE EMAR FOR PT MEDICATION DOSING/TIMES. SHALLOW RESPIRATIONS W/AGONAL BREATHING AND OCCASIONAL RATTLING NOTED. RUE PROPPED ON PILLOW IN EFFORT TO AID EDEMA. PT OFTEN REPOSITIONED TOWARD L SIDE FOR COMFORT. PT'S DAUGHTER CONTINUES IN ROOM WITH OTHER FAMILY/FRIENDS ROTATING T/OUT THE DAY. WILL CONTINUE TO MONITOR AND TREAT ACCORDINGLY UNTIL CHANGE OF SHIFT.
--- NOTE | 2021-06-10 05:03 | NUR ---
SHIFT SUMMARY NO ACUTE CHANGES THIS SHIFT. COMFORT CARE STATUS. PT LETHARGIC, FLEXES TOES AND MOANS WHEN IN PAIN. BREATHING ROOM AIR, AGONAL BREATHING. NO VITALS TAKEN. PT REPOSITIONED LEFT SIDE AND FLOATED, DOES NOT TOLERATE RIGHT SIDE. ONE WET BRIEF THIS SHIFT. C/D ATTENDS IN PLACE. PAIN MEDICATION AND ANXIETY MEDICATION GIVEN PER EMAR. DAUGHTER AT BEDSIDE T/O SHIFT. CALL LIGHT IN REACH.
--- NOTE | 2021-06-10 07:00 | NUR ---
+-INITAL ASSESSMENT: Patient is resting with eyes closed on her left side, bue propped up on pillows. She is unresponsive unless staff is repositioning her. LS Coarse T/O. She has a rattle, scoplamine patch in place, daughter educatedr/t s/s end of life. Oral care done and patients face washed. Ativan 1mg IV given for some accessory muscle use. Patient is visibly more relaxed. Daughter at bedside, denies other needs at this time. Call light in reach, will continue to monitor.
--- NOTE | 2021-06-10 09:15 | NUR ---
Comfort care visit after review of EMR and case conference with bedside RN. Discussed strategy and recommendation for maintaining comfort and treating anxiety that occurs with change of position and pooling of secretions. Lex awake at bedside, feeling less anxious herself than earlier after nursing came in to do oral suctioning, reposition and medications. She states "gurgling is less noisy now". Lex expressed distress r/t some family dynamics with one of pt's sisters, who was disagreeing with lex's report to staff, medical care decisions, medicating for comfort and other aspects of her mom's care. Validation, support and encouragement offered after therapeutic listening. Offered to assist in limiting visitors if any were causing lex or pt distress. Pt has audible upper airway secretions and gurgling respiration, anticipated in dying process and lex has been educated on this daily since wednesday but it is still difficult for her to witness. Pt has scopolomine patch in place. Pt appears very comfortable. She has silent, apnic spells lasting up to 10-15 seconds. Pt does not appear anxious, restless or distressed outside of pooled secretions, which do not appear to be distressing to pt. Lex expressed gratitude for nursing care and Ferry Engineer visit yesterday and stated the prayer per Ferry Engineer Hiram was so janna and she was certain it brought her mom peace. Lex reports family members will be in to visit again later. She states her brothers are unable to come visit now. Each has visited at least once. Pal Care to continue supportive visits.
--- NOTE | 2021-06-10 09:28 | NUR ---
PATIENT CONTINUES TO REST COMFORTABLY. DAUGHTER AT BEDSIDE.
--- NOTE | 2021-06-10 11:42 | NUR ---
PATIENT HAS BEEN RESTING COMFORTABLY. SHE IS COUGHING OCCASIONALLY, ORAL SUCTION ATTEMPTED, MINIMAL SECRETIONS REMOVED. PATIENT WAS MEDICATED WITH ROXANOL AND ATIVAN FOR SOME RESTLESSNESS, MOANING, AND FROWNING. DAUGHTER AND SISTER AT BEDSIDE. PT REPOSITIONED FOR COMFORT. FAMILY DENIES OTHER NEEDS AT THIS TIME. CALL LIGHT IN REACH, WILL CONTINUE TO MONITOR.
--- NOTE | 2021-06-10 14:37 | NUR ---
PATIENT ATTENDS CHANGED AND SHE WAS REPOSITIONED TO HER LEFT SIDE. WITH TURNING SHE IS COUGHING, WE ARE UNABLE TO SUCTION BECAUSE SHE WILL NOT OPEN HER MOUTH. LAUREN AT THE BEDSIDE. GAETANO
--- NOTE | 2021-06-10 15:12 | NUR ---
Comfort care visit #2 as planned with lex for late afternoon. Lex and other family members have just left. Lex usually only gone for short while each day for some fresh air, shower at home. Pt appears very comfortable. RN is premedicating prior to position change as this is when pt appears most anxious or uncomfortable. Work of breathing is improved/less than earlier this am. Respirations are slower and secretions are less audible. Apnic episodes continue. Pt appears imminent. Cont with supportive visits.
--- NOTE | 2021-06-10 15:56 | NUR ---
PATIENT IS RESTING COMFORTABLY, RATTLING WITH BREATHING HAS IMPROVED. WCTM
--- NOTE | 2021-06-10 18:08 | NUR ---
PATIENT RESTING ON HER LEFT SIDE. DAUGHTER AND GRANDSON AT THE BEDSIDE. SHE DOES NOT APPEAR TO BE IN ANY RESPIRATORY DISTRESS AT THIS TIME.
--- NOTE | 2021-06-10 18:13 | NUR ---
SUMMARY: PATIENT HAS BEEN PRETTY COMFORTABLE T/O THE SHIFT. SHE WAS MEDICATED TWICE WITH 2 MG PO ATIVAN MIXED WITH 20 MG ROXANOL. SHE WAS PREMEDICATED ONCE WITH 1 MG ATIVAN BEFORE CHANGING HER ATTENDS. FAMILY HAS BEEN AT THE BEDSIDE T/O THE SHIFT. SHE HAS CHEYNNE SWENSON BREATHING WITH FREQUENT APNEC EPISODES, RESP 6 BPM AT TIMES. DAUGHTER DENIES FURTHER NEEDS. WILL REPORT TO ONCOMING RN.
--- NOTE | 2021-06-11 06:03 | NUR ---
SHIFT SUMMARY NO ACUTE CHANGES THIS SHIFT. COMFORT CARE STATUS. PT LETHARGIC, FLEXES TOES AND MOANS WHEN IN PAIN. BREATHING ROOM AIR, AGONAL BREATHING. NO VITALS TAKEN. PT REPOSITIONED LEFT SIDE AND FLOATED, DOES NOT TOLERATE RIGHT SIDE. TWO WET BRIEFS THIS SHIFT. C/D ATTENDS IN PLACE. PAIN MEDICATION AND ANXIETY MEDICATION GIVEN PER EMAR. ATROPINE GIVEN X1 PER EMAR. DAUGHTER AT BEDSIDE T/O SHIFT. CALL LIGHT IN REACH.
--- NOTE | 2021-06-11 10:22 | NUR ---
PATIENT WAS SUCTIONED TO GET EXTRA SECREATIONS OUT. TANISH COLORED OUTPUT WAS SUCTIONED OUT OF HER MOUTH. DAUGHTER REPORTED "SHE SOUNDS A LOT BETTER". CALL LIGHT WITHIN REACH.
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
--- NOTE | 2021-06-11 12:20 | NUR ---
PATIENTS FAMILY THINKS THAT SHE IS COMFORTABLE AND DOESN'T NEED TO BE REPOSITIONED JUST YET. CALL LIGHT WITHIN REACH.
--- NOTE | 2021-06-11 14:12 | NUR ---
Comfort Care Visit Pt resting in bed with her eyes closed. Pt is non responsive and appears comfortable with no S/S of distress at this time. Moderate secretions noted. Daughter at bedside. Offered supportiv visit and therapeutic listening. Daughter expresses appreciation and report no other concerns at this time. Pt appears iminent. Palliative Care will remain available.
--- NOTE | 2021-06-11 15:31 | NUR ---
PATIENT WAS GIVEN A BED BATH FROM [facility] AND SUPERVISOR TUNNEL HEADING STUDENT. PATIENT WAS REPOSITIONED WELL. PAIN MEDS WERE GIVEN JUST NOW. SUCTIONED HER MOUTH PER DAUGHTERS REQUEST. DAUGHTER HAD CALL LIGHT IN REACH.
--- NOTE | 2021-06-11 15:58 | NUR ---
SHIFT SUMMARY: COMFORT CARE PATIENT IS NON RESPONSIVE BUT IS HAVING THE AGANOL BREATHING. DAUGHTER IS AT BEDSIDE. DAUGHTER WANTS TO HAVE PATIENT MEDICATED EVERY HOUR IF POSSIBLE. PAIN HAS BEEN MANAGED WITH ROXANOL AND ATIVAN. PATIENT IS TURNED EVERY TWO HOURS AND HAS HER ATTENDS CHANGED. SHE DOES HAVE SECREATIONS THAT ALSO NEED TO BE SUCTIONED ABOUT EVERY HOUR. PATIENT IS TO NOT BE TURNED ON HER LEFT SIDE DUE TO A MASS. PATIENTS DAUGHTER REPORTED PATIENT SEEMS TO BE COMFORTABLE AT THIS TIME.
--- NOTE | 2021-06-11 17:16 | NUR ---
PATIENT WAS REPOSITIONED TO LEFT SIDE. PAIN MEDICATIONS GIVEN (SEE EMAR). DAUGHTER HAS CALL LIGHT IN HAND.
--- NOTE | 2021-06-12 05:03 | NUR ---
SHIFT SUMMARY: PATIENT HAS BEEN UNRESPONSIVE WITH AGONAL BREATHING THAT IS WEAKER SINCE START OF SHIFT. DAUGHTER AT BEDSIDE AND AGREEABLE TO IV MORPHINE EVERY 1-2 HOURS R/T WHEN PATIENT APPEARS UNCOMFORTABLE DUE TO DYSPNEA/AIR HUNGER. PATIENT HAS NOT VOIDED FOR ENTIRE SHIFT-BRIEF REMAINS CLEAN AND DRY.
--- NOTE | 2021-06-12 10:29 | NUR ---
AT SHIFT CHANGE THIS AM DURING AM ROUNDING. NOTED BY THIS RN AND OFFGOING RN AMADO THAT PATIENT HAD NO RESPIRATIONS AND NO PULSE. VERIFIED DNR WRIST BAND. AUSCULTATION FOR 2 MINUTES OF HEART AND LUNGS SHOWED NO RHYTHM AND NO REPSIRATIONS. NOTIFIED JOSE ARMANDO PALACIOS RN AND DAUGHTER WHO WAS SLEEPING AT BEDSIDE OF HER MOTHERS PASSING. GAVE TIME FOR DAUGHTER TO BE WITH HER MOTHER AND GRIEF PROCESS. JOSE ARMANDO CARRINGTON HAS NOTIFIED [facility] AND ALSO NURSING SENIOR PROCESS ENGINEER AND HOSPTIALIST .
--- NOTE | 2021-06-12 11:33 | NUR ---
Spoke with Primary RN Priscila. Pt has , daughter was at bedside at time of passing. Staff waiting for call from family regarding home choice. No concerns at this time. Palliative Care will remain available.
== END 2021-06-12 12:53 | DRG 871 ==
LOC: ER 15:03 → PCU 20:48
PROVIDERS: Family Medicine; Internal Medicine; Student in an Organized Health Care Education/Training Program; ADMIT Internal Medicine
DX: A41.9 Sepsis, unspecified organism (principal); J18.9 Pneumonia, unspecified organism; G92.8 Other toxic encephalopathy; C56.9 Malignant neoplasm of unspecified ovary; C78.00 Secondary malignant neoplasm of unspecified lung; C78.89 Secondary malignant neoplasm of other digestive organs; C77.9 Secondary and unspecified malignant neoplasm of lymph node, unspecified; C78.6 Secondary malignant neoplasm of retroperitoneum and peritoneum; D84.821 Immunodeficiency due to drugs; Z68.41 Body mass index [BMI] 40.0-44.9, adult; Z28.21 Immunization not carried out because of patient refusal; Z51.5 Encounter for palliative care; E66.01 Morbid (severe) obesity due to excess calories; Z66 Do not resuscitate; R65.20 Severe sepsis without septic shock; F32.A Depression, unspecified; F41.9 Anxiety disorder, unspecified; B95.2 Enterococcus as the cause of diseases classified elsewhere; T45.1X5A Adverse effect of antineoplastic and immunosuppressive drugs, initial encounter; Z20.822 Contact with and (suspected) exposure to COVID-19; I12.9 Hypertensive chronic kidney disease with stage 1 through stage 4 chronic kidney disease, or unspecified chronic kidney disease; E83.42 Hypomagnesemia; R53.81 Other malaise; N18.30 Chronic kidney disease, stage 3 unspecified; M19.90 Unspecified osteoarthritis, unspecified site; E78.5 Hyperlipidemia, unspecified; K21.9 Gastro-esophageal reflux disease without esophagitis; Z87.440 Personal history of urinary (tract) infections; Z88.5 Allergy status to narcotic agent; Z90.710 Acquired absence of both cervix and uterus; Z98.890 Other specified postprocedural states; Z90.722 Acquired absence of ovaries, bilateral; Z79.899 Other long term (current) drug therapy
CPT/HCPCS: 0241U; 36415; 51701; 70470; 71046; 80048; 80069; 80202; 81001; 82803; 82947; 83605; 83735; 84145; 85025; 87040; 87077; 87086; 87186; 93005; 93010; 96365; 96367; 96375; 97110; 97116; 97163; 97166; 97530; 97535; 99285-25; A9270; J0692; J1170; J1630; J1650; J2060; J2270; J3370; J3475; J7030; J7050; Q5110; Q9967

== ENCOUNTER → 2021-06-04 | Outpatient (CLI) | payer MEDICARE, OTHER ==
[~2021-06-04] MED LIST changes: +BENZ100A PO; +BUME2 PO; +CODEINE PO; +ESCI20 PO; +GUAIFENESIN PO; +LOSARTAN POTASS25 M2 PO; +MONT10T PO; +POTA10T PO; +Phenergan PO; +SYNTHROID50 MC1 PO; +Ventolin/Prove6.7 GM INH
[2021-06-04 11:39] LABS: Albumin, Blood 2.9 g/dL (3.4-5.0); Albumin/Globulin Ratio 0.9 (0.8-1.8); Bilirubin, Total 0.5 mg/dL (0.1-1.0); Bun/Creatinine Ratio 14.2 (12.0-20.0); Calcium, Blood 9.1 mg/dL (8.5-10.1); Creatinine, Blood 1.41 mg/dL (0.40-1.00); Globulin, Blood 3.3 g/dL (2.2-4.0); Magnesium, Blood 1.8 mg/dL (1.6-2.4); Phosphorus, Blood 4.4 mg/dL (2.5-4.9); Potassium, Blood 3.3 mmol/L (3.5-5.5); Total Protein, Blood 6.2 g/dL (6.4-8.2)
== END | disposition home or self-care (01) ==
LOC: LAB SHORT 09:41
PROVIDERS: Internal Medicine Hematology & Oncology
DX: C56.9 Malignant neoplasm of unspecified ovary (principal)
CPT/HCPCS: 80053; 83735; 84100; 86304